=== PATIENT | female | born 1965 | race Caucasian/White ===

== ENCOUNTER 2016-11-07 09:21 | Observation (INO) | payer MEDICARE, MEDICAID ==
[~2016-11-07] VITALS: Ht 157.5 cm; Wt 95.2 kg
[2016-11-07] MEDS ORDERED: ASPIRIN 81 MG CHEW TAB ONE (09:37)
[2016-11-07] MEDS ORDERED: NITROGLYCERIN 2% OINT 1 INCH PKT TOPICAL ONE (09:48)
[2016-11-07 13:18] VITALS: BP_SYST 138; RESP 14; TEMP 98.4
[2016-11-07] MEDS ORDERED: TRAMADOL 50 MG TAB PO PRN ×2 (14:25→20:05)
[2016-11-07] MEDS ORDERED: DOCUSATE SOD 100 MG CAP PO PRN (14:25)
[2016-11-07] MEDS ORDERED: ACETAMINOPHEN 325 MG TAB PO PRN (14:25)
[2016-11-07] MEDS ORDERED: SALINE FLUSH 10 ML FLUSH PRN (14:25)
[2016-11-07] MEDS ORDERED: LORAZEPAM 0.5 MG TAB PO PRN (14:25)
[2016-11-07] MEDS ORDERED: TEMAZEPAM 7.5 MG CAP PO PRN (14:25)
[2016-11-07] MEDS ORDERED: TEMAZEPAM 15 MG CAP PO PRN (14:25)
[2016-11-07] MEDS ORDERED: ONDANSETRON 4 MG VIAL IV PRN (14:25)
[2016-11-07] MEDS ORDERED: NITROGLYCERIN SL 0.4 MG TAB SL PRN (14:25)
[2016-11-07] MEDS ORDERED: MORPHINE 2 MG/ML SYR IV PRN (14:25)
[2016-11-07] MEDS ORDERED: NITROGLYCERIN 50 MG/250 ML 250 ML IV PRN (14:45)
[2016-11-07 16:56] VITALS: BP_SYST 122; BP_SYST 126; RESP 18; TEMP 98.5
[2016-11-07 17:55] VITALS: Ht 157.5 cm; Wt 95.2 kg
[2016-11-07 19:35] VITALS: BP_SYST 104; RESP 16; TEMP 98.7
[2016-11-07] MEDS: METOPROLOL TART 25 MG TAB PO SCH (21:03)
[2016-11-07] MEDS: GABAPENTIN 100 MG CAP PO SCH (21:03)
[2016-11-07] MEDS: SALINE FLUSH 10 ML FLUSH SCH (21:03)
[2016-11-07 23:22] VITALS: BP_SYST 111; RESP 20; TEMP 98
[2016-11-08 03:07] VITALS: BP_SYST 69; TEMP 97.7
[2016-11-08 03:09] VITALS: BP_SYST 85; RESP 18
[2016-11-08 05:05] VITALS: BP_SYST 106
[2016-11-08] MEDS ORDERED: SODIUM CHLORIDE 0.9% FLUSH BAG 500 ML IV SCH (06:00)
[2016-11-08 07:14] VITALS: BP_SYST 109; RESP 16; TEMP 98.1
[2016-11-08] MEDS ORDERED: ASPIRIN 81 MG CHEW TAB PO SCH (08:00)
[2016-11-08] MEDS: SALINE FLUSH 10 ML FLUSH SCH (08:00)
[2016-11-08] MEDS ORDERED: CLOPIDOGREL 75 MG TAB PO SCH (09:00)
[2016-11-08] MEDS ORDERED: HCTZ 25 MG TAB PO SCH (09:00)
[2016-11-08] MEDS ORDERED: ISOSORBIDE MONO 30 MG TAB PO SCH (09:00)
[2016-11-08] MEDS ORDERED: Aspirin 325 MG TAB PO SCH (09:00)
[2016-11-08] MEDS ORDERED: ANASTROZOLE 1 MG TAB PO SCH (09:00)
[2016-11-08] MEDS ORDERED: DILAUDID 1 MG/ML AMP IV ONE (09:25)
[2016-11-08] MEDS ORDERED: LEXISCAN 0.4 MG/5 ML SYRINGE IV ONE (10:04)
[2016-11-08 14:03] VITALS: BP_SYST 118; RESP 20; TEMP 98.1
[2016-11-08] MEDS: GABAPENTIN 100 MG CAP PO SCH ×2 (14:12→16:52)
[2016-11-08] MEDS: METOPROLOL TART 25 MG TAB PO SCH (14:14)
[2016-11-08 18:02] VITALS: BP_SYST 118; RESP 20; TEMP 98.1
== END 2016-11-08 17:00 | disposition home or self-care (01) ==
LOC: ENRESERVDT → ENRESERVTM → ER 09:21 → SDS 11:04 → ENPENDDIS 11:04 → PCU2 16:50
PROVIDERS: ADMIT Specialist; ATTEND Specialist
CPT/HCPCS: 36415 ×2; 71010 ×2; 78452 ×2; 80053 ×2; 80061 ×2; 82550 ×2; 82553 ×2; 83735 ×2; 84484 ×2; 85025 ×2; 85610 ×2; 85730 ×2; 93005 ×2; 93017 ×2; 94799; 99285; A9500; G0378; J1170; J2785